=== PATIENT | female | born 1960 | race Caucasian/White ===

== ENCOUNTER 2016-06-30 13:51 | Inpatient (IN) | payer BC ==
--- NOTE | ~2016-06-30 | HP ---
History And Physical [place] [id number] [facility] [place]. [address] NAME: ADIA AUGUSTIN : 64 STATUS : ADM IN [facility]#: [id number] AGE: 55 ADM/REG DATE : 06/30/16 MR#: [id number] REPORT SERV DATE: 06/30/16 DICTATED BY: JESSICA MCKINLEY DATE: 06/30/16 REPORT STATUS : Draft TRANSCRIBED BY: MODL DATE: 06/30/16 DATE OF ADMISSION: 06/30/2016 HISTORY OF PRESENT ILLNESS: This is one of multiple ER visits and hospitalizations for Ms. Augustin. She is a 55-year-old woman who unfortunately continues to smoke despite her severe COPD, pulmonary hypertension, and chronic hypercapnic hypoxemic respiratory failure. She was brought in by EMS because of worsening dyspnea, decreased alertness, and was found to be poorly responsive on the field. She was intubated en route and stabilized in the emergency department. She had still a high carbon dioxide level after intubation with normal pH, and when we saw her, she was already intubated, sedated on mechanical ventilation, and there was no family at the bedside. PAST MEDICAL HISTORY: Significant for COPD, hypertension, chronic hypercapnic respiratory failure, and pulmonary hypertension. Unfortunately, she continues to smoke. SOCIAL HISTORY: Significant for smoking two packs a day for 35 years. She is on chronic oral therapy for pulmonary hypertension. REVIEW OF SYSTEMS: We could not obtain a review of 10 systems since she is sedated and intubated on mechanical ventilation. FAMILY HISTORY: Significant for COPD and smoking-related lung disease. PHYSICAL EXAMINATION: GENERAL: On exam, she appears chronically ill. HEENT: Normocephalic and atraumatic. NECK: Supple. No lymphadenopathy. No JVD. CHEST: Symmetric with good expansion bilaterally. Her lungs have very prolonged expiratory phase or hyperresonant to percussion even with a high expiratory time on the ventilator. CARDIOVASCULAR: Shows S1 and S2, which are regular rate and rhythm. ABDOMEN: Benign. EXTREMITIES: She has no edema, no clubbing, no cyanosis. ASSESSMENT AND PLAN: 1. Respiratory failure. She has acute on chronic hypercapnic respiratory failure. Despite a pCO2 over 70, she had a normal pH. We have started her on aggressive bronchodilator therapy, systemic steroids, and systemic antibiotics. Chest radiograph showed chronic changes of multiple calcified granulomatous nodules that were previously noted, but no new pulmonary infiltrates. She has been started on deep venous thrombosis and gastrointestinal prophylaxis and sedation while on the ventilator. 2. Tobacco abuse. The patient has a history of tobacco abuse and will be sedated. We will consider adding nicotine replacement once she is more alert. 3. Pulmonary hypertension. She has what appears to be significant cor pulmonale. She has been scheduled to be seen in our office, but has never followed up with our partners that had setup the appointment. The patient will be admitted to the intensive care History And Physical [address] [address] NAME: ADIA AUGUSTIN : 64 STATUS : ADM IN [facility]#: [id number] AGE: 55 ADM/REG DATE : 06/30/16 MR#: [id number] REPORT SERV DATE: 06/30/16 DICTATED BY: JESSICA MCKINLEY DATE: 06/30/16 REPORT STATUS : Draft TRANSCRIBED BY: DANIELLE DATE: 06/30/16 unit and kept on the ventilator until she starts demonstrating improvement. CB/DANIELLE Jessica Mckinley M.D. / [id number] CC: Jessica Mckinley M.D.
--- NOTE | ~2016-06-30 | IDS ---
Interim Discharge Summary [facility] [address] [place]. [address] NAME: ADIA AUGUSTIN : 64 STATUS : ADM IN [facility]#: [id number] AGE: 55 ADM/REG DATE : 06/30/16 MR#: [id number] REPORT SERV DATE: 07/02/16 DICTATED BY: NICOLASA MALDONADO DATE: 07/02/16 REPORT STATUS : Draft TRANSCRIBED BY: MODL DATE: 07/02/16 ADMISSION DATE: 06/30/2016 DISCHARGE DATE: 07/02/2016 DATE OF TRANSFER TO THE FLOOR: 07/02/2016. BRIEF HISTORY OF PRESENT ILLNESS: Ms. Augustin is a lady who is familiar to the pulmonary and critical care service from previous hospitalizations. She is a 55-year-old woman who has severe COPD and pulmonary hypertension with chronic hypercapnic and hypoxemic respiratory failure, who unfortunately continues to smoke. She says there were previous hospitalizations for respiratory failure. She was brought in by EMS on the evening of 06/30/2016 due to worsening dyspnea with encephalopathy. She was intubated by paramedics in the field due to obtundation and was found to have hypercapnia following an intubation with a normal PH. she was seen in the emergency department and ultimately admitted to the Coronary Care Unit for I first met her, and she was actually fairly alert on the ventilator. She did not have a significant evidence for bronchospasm on physical exam, but did have bibasilar crackles and was fairly hypoxemic on the ventilator. In light of her severe pulmonary hypertension, decision was made to proceed with aggressive diuresis, and her maintenance fluids were discontinued, and she received a scheduled Lasix which resulted in nearly 6 L urine output over the last night. She was successfully extubated to BiPAP on morning of 07/02/2016 and has actually now been weaned off the BiPAP and is tolerating a couple of liters of nasal cannula and feels significantly improved. She is now moving out to the telemetry floor for ongoing titration of supplemental oxygen, ongoing diuretic diuresis, and continued treatment of potential for exacerbation of COPD. She is awake, alert, oriented, and conversive active. PROBLEM LIST: Includes: 1. Acute on chronic hypercapnic and hypoxemic respiratory failure, status post two days of mechanical ventilation, now extubated to BiPAP, which we will continue in the evenings while she is asleep and alternate with nasal cannula as tolerated throughout the day. We have already notified Dr. Spann of her transfer to the floor, and he will continue following her along from a pulmonary standpoint. 2. Severe pulmonary hypertension, status post approximately 6 L of Lasix diuresis, which has markedly improved her hypoxemia. She is on Adcirca and which we will continue on that, she is tolerating p.o. 3. Acute exacerbation of severe COPD. Unfortunately, she continues to smoke. We have continued her on Dulera, her Spiriva, and short-acting bronchodilator nebs, and is on a prednisone after having received a couple days of Solu-Medrol while in the intensive care unit. She is being covered with Levaquin for potential community-acquired pneumonia, which would advise to discontinue pending receipt of normal cultures. 4. Longstanding tobacco abuse. She certainly needs ongoing counseling with regard to tobacco cessation and she is currently being treated with a nicotine replacement patch. Morning labs have been ordered for tomorrow. Physical Therapy has been consulted to assist with early immobilization following her extubation, and we will continue to wean down supplemental oxygen to a goal oximetry sat of 88% to 94% as tolerated. She will move out to Interim Discharge Summary [address] [address] NAME: ADIA AUGUSTIN : 64 STATUS : ADM IN [facility]#: [id number] AGE: 55 ADM/REG DATE : 06/30/16 MR#: [id number] REPORT SERV DATE: 07/02/16 DICTATED BY: NICOLASA MALDONADO DATE: 07/02/16 REPORT STATUS : Draft TRANSCRIBED BY: MODL DATE: 07/02/16 the telemetry floor to be followed by the Hospital Medicine Service ( navigator has already been notified), and Dr. Spann will follow along from a pulmonary standpoint. She is full code. Please feel to call with any questions. JJ/DANIELLE Nicolasa Maldonado MD / [id number] CC: Earl Gutierrez M.D. UNKNOWN
--- NOTE | ~2016-06-30 | CN ---
Consultation Report [facility] [address] [place]. [address] NAME: ADIA AUGUSTIN : 64 STATUS : ADM IN [facility]#: [id number] AGE: 55 ADM/REG DATE : 06/30/16 MR#: [id number] REPORT SERV DATE: 06/30/16 DICTATED BY: MESFIN LORD DATE: 06/30/16 REPORT STATUS : Draft TRANSCRIBED BY: MODL DATE: 06/30/16 CARDIOLOGY CONSULTATION DATE OF CONSULTATION: 06/30/2016 REASON FOR CONSULTATION: Concern regarding acute ST-segment elevation myocardial infarction in a 55-year-old woman presenting with [id number] cardiopulmonary arrest. HISTORY OF PRESENT ILLNESS: Ms. Augustin is a 55-year-old woman with known advanced chronic obstructive pulmonary disease which is oxygen dependent. The patient also has advanced granulomatous lung disease and severe group 3 pulmonary hypertension. The patient is presently intubated and sedated. The history is obtained from the medical chart as well as the patient's other treating physicians. The patient apparently was in her usual state of health when she went to sleep last night. The patient's called the Emergency Medical Services when the patient was unarousable this morning. The patient required rapid sequence intubation in the field. She apparently did not have overt cardiac arrest, but was hypertensive when she was brought to the emergency room. A 12-lead EKG showed diffuse J-point elevation, with possible reciprocal ST depression in lead aVL. The changes were felt to be new since a previous EKG, which was obtained by the emergency physicians. The patient apparently continues to smoke cigarettes at home. She has undergone cardiac catheterization in the past. This was a left and right heart catheterization showing severe pulmonary hypertension with a mean pulmonary artery systolic pressure of 44 mmHg. The catheterization was performed in 05/2015 and showed no significant coronary heart disease. PAST MEDICAL HISTORY: 1. Severe oxygen-dependent chronic obstructive pulmonary disease. 2. Granulomatous lung disease. 3. Group 3 pulmonary hypertension. PAST SURGICAL HISTORY: Significant for two previous C-sections. FAMILY HISTORY: Significant for COPD and diabetes. The patient has no known history of early coronary heart disease or sudden cardiac . SOCIAL HISTORY: The patient apparently still smokes cigarettes. She has no known history of alcohol abuse. She lives at home with her . ALLERGIES: THE PATIENT HAS A PREVIOUS DOCUMENTED ALLERGY TO PENICILLIN. HOME MEDICATIONS: The patient's current home medication list is unknown. Consultation Report [place] [id number] [place]. [address] NAME: ADIA AUGUSTIN : 64 STATUS : ADM IN PAT#: [id number] AGE: 55 ADM/REG DATE : 06/30/16 MR#: [id number] REPORT SERV DATE: 06/30/16 DICTATED BY: MESFIN LORD DATE: 06/30/16 REPORT STATUS : Draft TRANSCRIBED BY: MODL DATE: 06/30/16 REVIEW OF SYSTEMS: A review of systems could not be performed, as the patient is currently intubated and sedated. PHYSICAL EXAMINATION: VITAL SIGNS: Temperature is 98.0 degrees Fahrenheit, blood pressure is 129/62 mmHg, heart rate is 75 beats per minute and regular, respirations 15, and oxygen saturation is 96% on 100% FiO2 mechanical ventilation. CONSTITUTIONAL: The patient is a well-nourished white woman who is currently intubated and sedated, but does wake up with noxious stimuli, and appears to localize. EYES: PERRL, EOMI, clear conjunctiva. HEAD/MNT: NCAT with moist mucous membranes and grossly normal hard and soft palate. NECK: Supple with no obvious thyromegaly or lymphadenopathy CARDIOVASCULAR: Heart sounds are distant. There is a regular rhythm with a normal S1 and a slightly pronounced P2 component of the second heart sound. The jugular venous pressure appears grossly normal. No significant murmurs are noted. PULMONARY: There is globally diminished air movement with a diffuse expiratory wheeze noted. No rales are appreciated. ABDOMINAL: Soft, non-tender, non-distended with no hepatosplenomegaly noted. EXTREMITIES: No clubbing, cyanosis or edema. MUSCULOSKELETAL: Grossly normal strength and range of motion in all extremities INTEGUMENTARY: Skin appears intact with no bruises, wounds or active lesions noted NEUROLOGIC: Neuro exam could not be performed due to sedation. IMAGIN-LEAD EKG: The 12-lead EKG performed on 06/30/2016 at 1325 hours shows sinus rhythm with a heart rate of 60 beats per minute. There is 1 mm of J-point elevation in leads II, III, and aVF as well as leads V3 through V6. There is peaking of the T-waves. There is a short p.r.n. interval noted, with an unusual P-wave axis. CHEST X-RAY: The chest x-ray shows hyperinflation of the lungs with diffuse granulomatous disease, which apparently is chronic. LABORATORY DATA: ABG shows a pH of 7.40, pCO2 of 72, PaO2 of 592 on 100% FiO2. Cell count shows a white blood cell count of 10.6, hemoglobin 13, hematocrit 44, platelets 200. INR is normal at 0.9. Serum lactate is 2.4. B-type natriuretic peptide is normal at 41. Hepatic profile shows a procalcitonin of less than 0.05. Sodium is 139, potassium 3.8, chloride is 89, CO2 of 44, BUN 11, creatinine is 0.57, glucose is 155. Magnesium 1.8. Troponin I is normal at 0.03. Liver function studies are otherwise unremarkable. Bedside echocardiogram: A bedside echocardiogram was performed in the emergency room. The patient's only usable windows were the subcostal windows. However, limited imaging of the left ventricle and right ventricle shows grossly normal left ventricular systolic function Consultation Report [place] [id number] [facility] [place]. [address] NAME: ADIA AUGUSTIN : 64 STATUS : ADM IN [facility]#: [id number] AGE: 55 ADM/REG DATE : 06/30/16 MR#: [id number] REPORT SERV DATE: 06/30/16 DICTATED BY: MESFIN LORD DATE: 06/30/16 REPORT STATUS : Draft TRANSCRIBED BY: MODCarroll DATE: 06/30/16 with an ejection fraction felt to be in the range of 55% to 60%. No segmental wall motion abnormalities were noted. Additionally, RV systolic function appeared normal. There did appear to be at least some degree of right ventricular hypertrophy. ASSESSMENT AND PLAN: 1. Hypercarbic respiratory failure: The patient is being treated for a chronic obstructive pulmonary disease exacerbation by the Pulmonary Critical Care Service. 2. Abnormal EKG: There is no evidence of acute myocardial infarction at this time. Acute pericarditis cannot be excluded. However, this would be unlikely to explain the patient's decompensation. For now, I would recommend no specific medical therapy. If the patient does have chest pain suggesting pericarditis following extubation, consider NSAID therapy. Again, the patient has no known coronary heart disease, and therefore, should not require any specific cardiovascular treatment. 3. Severe group 3 pulmonary hypertension: Treat underlying chronic obstructive pulmonary disease. The patient should be strongly encouraged to stop smoking. Thank you for allowing me to participate in the care of Ms. Augustin. If the patient appears to have no active cardiac issues, the Cardiology Service will sign off. Please re-consult Cardiology should active cardiac issues develop. DESEAN/DANIELLE Mesfin Lord MD / [id number] CC: Earl Gutierrez M.D. UNKNOWN
--- NOTE | ~2016-06-30 | DS ---
Discharge Summary [facility] [address] [place]. [address] NAME: ADIA WADSWORTH : 64 STATUS : DIS IN PAT#: [id number] AGE: 55 ADM/REG DATE : 06/30/16 MR#: [id number] REPORT SERV DATE: 07/06/16 DICTATED BY: MARTINA BRAN DATE: 07/05/16 REPORT STATUS : Draft TRANSCRIBED BY: MODL DATE: 07/05/16 ADMISSION DATE: 06/30/2016 DISCHARGE DATE: 07/05/2016 PRINCIPAL DIAGNOSIS: Acute on chronic exacerbation of chronic obstructive pulmonary disease, severe pulmonary hypertension. SECONDARY DIAGNOSIS: Acute on chronic hypercapnic respiratory failure with metabolic encephalopathy due to elevated CO2, and anxiety disorder with depression. HISTORY OF PRESENT ILLNESS: Please see dictation by the Critical Care Team on 06/30/2016 and subsequent interim summary on 07/02/2016. HOSPITAL COURSE: The patient was transferred to the floor. Satisfactory wean down off oxygen, actually below her basal dose, as she actually was felt to have had oxygen toxicity when she became disoriented and her turned up the O2. She had issues with sleeping with depression. She was initiated on Paxil and trazodone at bedtime p.r.n. with referral to a psychologist of choice, but she was ambulating well, eating well, and there was no further wheezing. She will be released in a satisfactory condition on 07/05/2016. Diet as tolerated. Activity as tolerated. Following up with Dr. Tyron Spann in one to two weeks, with Paxil 10 mg, trazodone as mentioned, Florastor on antibiotics. She was actually going to finish Levaquin while she was here. Prednisone 20 per day for three days. MiraLAX daily. She will continue her Opsumit and Revatio. Proventil patch with instructions not to smoke. GILLM/DANIELLE Martina Bran M.D. / [id number] CC: Cassie Blanca,
[~2016-06-30 13:51] MED LIST: ADCIRCA20 MG PO; ASAB PO; ATEN25 PO; HABIT21 TOP; KDUR10 PO; KLOR-CON20 MEQ PO; L20 PO; L40 PO; NICODERM C21 MG/241 TOP; OPSUMIT10 PO; POTASSIUM RX PO; PRILO PO; PRIN2.5 PO; PROAIR HFA INH; PROVENTSOL INH; SPIRIVA RESPIMAT INH; TUMSROLL PO; VENTOLIN HFA INH; VITAMIN D2000 UNIT PO
[2016-06-30 13:56] LABS: BASOPHILS 0.1 %; BASOPHILS ABSOLUTE 0.01 10/3/uL (0.0-0.16); EOSINOPHILS 0.2 %; EOSINOPHILS ABSOLUTE 0.02 10/3/uL (0.0-0.53); HEMOGLOBIN 12.9 g/dL (12.0-16.0); IMMATURE GRANULOCYTES 0.8 %; IMMATURE GRANULOCYTES ABSOLUTE 0.09 10/3/uL (0.0-0.11); LYMPHOCYTES 5.7 %; LYMPHOCYTES ABSOLUTE 0.61 10/3/uL (0.67-4.30); MEAN CORPUS HGB CONC 29.7 g/dL (32.0-36.0); MEAN CORPUSCULAR HEMOGLOB 28.6 pg (26.0-34.0); MEAN PLATELET VOLUME 11.9 fL (9.2-13.0); MONOCYTES 5.3 %; MONOCYTES ABSOLUTE 0.56 10/3/uL (0.21-1.20); NEUTROPHILS 87.9 %; NEUTROPHILS ABSOLUTE 9.35 10/3/uL (2.02-8.40); NUCLEATED RED BLOOD CELLS 0.2 /100WBC (0-0); RBC DISTRIBUTION WIDTH 14.4 % (12.0-16.0); RED CELL COUNT 4.51 10/6/uL (4.0-5.6)
[2016-06-30 13:58] LABS: ER CBC TAT 0 Hrs 00 Mins; HEMATOCRIT 43.5 % (36.0-48.0); MEAN CORPUSCULAR VOLUME 96.5 fL (80-100); PLATELET COUNT 200 10/3/uL (150-400); WHITE BLOOD CELLS 10.6 10/3/uL (4.5-10.5)
[2016-06-30 13:58] LABS: BE (BASE EXCESS) 15.6 MEQ/L (0 +/- 2.5); HCO3 (ACTUAL BICARBONATE) 43.5 MEQ/L (23-27); HEMOBLOGIN CONTENT 11.8 G/DL (12-16); INSTRUMENT SERIAL # 8087; METHEMOGLOBIN 0.2 % (0-3); MODE CMV; O2 CONTENT 17.6 VOL% (18-24); OPERATOR ID 32214; PCO2 (CO2 TENSION) 72 MMHG (35-45); PO2 (O2 TENSION) 592 MMHG (79-93); SAMPLE Arterial
[2016-06-30 13:59] LABS: MANUAL DIFF NO %
[2016-06-30 13:59] LABS: ALLENS TEST Pos; TIDAL VOLUME 500 ML
[2016-06-30 14:03] LABS: INTERNATIONAL NORMAL RATI 0.9 UNITS (-); PARTIAL THROMBO TIME 26.4 SEC (22.5-37.2); PROTIME (NOT ORD) 12.4 SEC (12.0-14.5)
[2016-06-30 14:54] LABS: ALBUMIN 3.5 G/DL (3.5-5.0); BUN (BLOOD UREA NITROGEN) 11 MG/DL (6-23); CALCIUM, SERUM 8.6 MG/DL (8.5-10.4); CHEST PAIN PROFILE TAT 0 Hrs 25 Mins; CHLORIDE, SERUM 89 MMOL/L (96-112); CREATININE 0.57 MG/DL (0.55-1.02); DIRECT BILIRUBIN 0.1 MG/DL (0.0-0.4); GFR AFRICAN AMERICAN 123 ML/MIN (>=60); GFR NON AFRICAN AMERICAN 106 ML/MIN (>=60); INDIRECT BILIRUBIN(NOT ORDER) 0.6 MG/DL (0.1-0.9); POTASSIUM, SERUM 3.8 MMOL/L (3.5-5.3); SGOT(AST) 14 U/L (5-40); SGPT(ALT) 16 U/L (5-65); SODIUM, SERUM 139 MMOL/L (135-148); TOTAL BILIRUBIN 0.7 MG/DL (0-1.2); TROPONIN I 0.03 NG/ML (<0.05)
[2016-06-30 14:55] LABS: ALKALINE PHOSPHATASE 133 U/L (45-117); GLUCOSE, SERUM 155 MG/DL (60-99)
[2016-06-30] MEDS ORDERED: *UNABLE3 (14:55)
[2016-06-30 15:14] LABS: CO2 (CARBON DIOXIDE) 44 MMOL/L (24-34)
[2016-06-30 16:13] LABS: PROCALCITONIN <0.05 ng/mL (<0.5)
[2016-07-01 04:41] LABS: BASOPHILS 0 %; EOSINOPHILS 0 %; HEMOGLOBIN 11.1 g/dL (12.0-16.0); IMMATURE GRANULOCYTES 0.3 %; IMMATURE GRANULOCYTES ABSOLUTE 0.03 10/3/uL (0.0-0.11); LYMPHOCYTES 10.4 %; LYMPHOCYTES ABSOLUTE 1.12 10/3/uL (0.67-4.30); MEAN CORPUS HGB CONC 29.7 g/dL (32.0-36.0); MEAN CORPUSCULAR HEMOGLOB 28.2 pg (26.0-34.0); MEAN CORPUSCULAR VOLUME 95.2 fL (80-100); MEAN PLATELET VOLUME 12.1 fL (9.2-13.0); MONOCYTES 7.9 %; MONOCYTES ABSOLUTE 0.85 10/3/uL (0.21-1.20); NEUTROPHILS 81.4 %; NEUTROPHILS ABSOLUTE 8.73 10/3/uL (2.02-8.40); PLATELET COUNT 151 10/3/uL (150-400); RBC DISTRIBUTION WIDTH 14.1 % (12.0-16.0); RED CELL COUNT 3.93 10/6/uL (4.0-5.6); WHITE BLOOD CELLS 10.7 10/3/uL (4.5-10.5)
[2016-07-01 04:43] LABS: HEMATOCRIT 37.4 % (36.0-48.0); MANUAL DIFF NO %
[2016-07-01 05:26] LABS: BUN (BLOOD UREA NITROGEN) 14 MG/DL (6-23); CALCIUM, SERUM 9.3 MG/DL (8.5-10.4); CHLORIDE, SERUM 90 MMOL/L (96-112); CO2 (CARBON DIOXIDE) 40 MMOL/L (24-34); CREATININE 0.73 MG/DL (0.55-1.02); GFR AFRICAN AMERICAN 109 ML/MIN (>=60); GFR NON AFRICAN AMERICAN 94 ML/MIN (>=60); POTASSIUM, SERUM 3.8 MMOL/L (3.5-5.3); SODIUM, SERUM 137 MMOL/L (135-148)
[2016-07-01 05:34] LABS: GLUCOSE, SERUM 102 MG/DL (60-99); ULTRASENSITIVE TSH 0.401 MCIU/ML (0.358-3.740)
[2016-07-01] MEDS ORDERED: ADCIRCA20 MG PO (09:25)
[2016-07-01] MEDS ORDERED: OPSUMIT10 PO (09:25)
[2016-07-01 12:21] LABS: A/G RATIO 0.9 (0.7-1.9); GLOBULIN 3.3 G/DL (2.5-4.1); PREALBUMIN 9.7 MG/DL (17.0-43.0); SGOT(AST) 17 U/L (5-40); SGPT(ALT) 15 U/L (5-65); TOTAL BILIRUBIN 0.3 MG/DL (0-1.2); TOTAL PROTEIN 6.3 G/DL (6.0-8.5)
[2016-07-01 12:22] LABS: ALKALINE PHOSPHATASE 94 U/L (45-117); PHOSPHORUS, SERUM 0.6 MG/DL (2.5-4.5)
[2016-07-01 16:19] LABS: ALBUMIN 2.8 G/DL (3.5-5.0); BUN (BLOOD UREA NITROGEN) 13 MG/DL (6-23); CALCIUM, SERUM 9.4 MG/DL (8.5-10.4); CHLORIDE, SERUM 88 MMOL/L (96-112); CO2 (CARBON DIOXIDE) 42 MMOL/L (24-34); CREATININE 0.72 MG/DL (0.55-1.02); GFR AFRICAN AMERICAN 111 ML/MIN (>=60); GFR NON AFRICAN AMERICAN 96 ML/MIN (>=60); GLUCOSE, SERUM 124 MG/DL (60-99); PHOSPHORUS, SERUM 1.5 MG/DL (2.5-4.5); POTASSIUM, SERUM 3.1 MMOL/L (3.5-5.3); SODIUM, SERUM 135 MMOL/L (135-148)
[2016-07-02 03:54] LABS: BASOPHILS 0 %; EOSINOPHILS 0 %; HEMATOCRIT 35.8 % (36.0-48.0); HEMOGLOBIN 11.3 g/dL (12.0-16.0); IMMATURE GRANULOCYTES 0.3 %; IMMATURE GRANULOCYTES ABSOLUTE 0.03 10/3/uL (0.0-0.11); LYMPHOCYTES ABSOLUTE 0.62 10/3/uL (0.67-4.30); MANUAL DIFF NO %; MEAN CORPUS HGB CONC 31.6 g/dL (32.0-36.0); MEAN CORPUSCULAR HEMOGLOB 28.6 pg (26.0-34.0); MEAN CORPUSCULAR VOLUME 90.6 fL (80-100); MEAN PLATELET VOLUME 11.6 fL (9.2-13.0); MONOCYTES 5.8 %; MONOCYTES ABSOLUTE 0.51 10/3/uL (0.21-1.20); NEUTROPHILS 86.9 %; NEUTROPHILS ABSOLUTE 7.69 10/3/uL (2.02-8.40); PLATELET COUNT 130 10/3/uL (150-400); RBC DISTRIBUTION WIDTH 14.3 % (12.0-16.0); RED CELL COUNT 3.95 10/6/uL (4.0-5.6); WHITE BLOOD CELLS 8.9 10/3/uL (4.5-10.5)
[2016-07-02 04:09] LABS: ALBUMIN 2.8 G/DL (3.5-5.0); BUN (BLOOD UREA NITROGEN) 16 MG/DL (6-23); CALCIUM, SERUM 8.7 MG/DL (8.5-10.4); CHLORIDE, SERUM 86 MMOL/L (96-112); CREATININE 0.57 MG/DL (0.55-1.02); GFR AFRICAN AMERICAN 123 ML/MIN (>=60); GFR NON AFRICAN AMERICAN 106 ML/MIN (>=60); GLUCOSE, SERUM 127 MG/DL (60-99); POTASSIUM, SERUM 3.1 MMOL/L (3.5-5.3); SODIUM, SERUM 138 MMOL/L (135-148)
[2016-07-02 04:11] LABS: CO2 (CARBON DIOXIDE) 41 MMOL/L (24-34); PHOSPHORUS, SERUM 5.2 MG/DL (2.5-4.5)
[2016-07-02 05:51] LABS: PROCALCITONIN <0.05 ng/mL (<0.5)
[2016-07-02] MEDS ORDERED: L40 PO (10:21)
[2016-07-02] MEDS ORDERED: ASAB PO (10:21)
[2016-07-02] MEDS ORDERED: L20 PO (10:21)
[2016-07-02] MEDS ORDERED: PROAIR HFA INH (10:22)
[2016-07-02] MEDS ORDERED: SPIRIVA RESPIMAT INH (10:22)
[2016-07-03 06:55] LABS: BASOPHILS 0 %; EOSINOPHILS 0.1 %; EOSINOPHILS ABSOLUTE 0.01 10/3/uL (0.0-0.53); HEMOGLOBIN 12.9 g/dL (12.0-16.0); IMMATURE GRANULOCYTES 0.1 %; IMMATURE GRANULOCYTES ABSOLUTE 0.01 10/3/uL (0.0-0.11); LYMPHOCYTES 17.4 %; MEAN CORPUS HGB CONC 31.5 g/dL (32.0-36.0); MEAN CORPUSCULAR HEMOGLOB 28.7 pg (26.0-34.0); MEAN CORPUSCULAR VOLUME 90.9 fL (80-100); MEAN PLATELET VOLUME 11.9 fL (9.2-13.0); MONOCYTES 9.1 %; MONOCYTES ABSOLUTE 0.89 10/3/uL (0.21-1.20); NEUTROPHILS 73.3 %; NEUTROPHILS ABSOLUTE 7.15 10/3/uL (2.02-8.40); RBC DISTRIBUTION WIDTH 14.2 % (12.0-16.0); WHITE BLOOD CELLS 9.8 10/3/uL (4.5-10.5)
[2016-07-03 06:56] LABS: HEMATOCRIT 40.9 % (36.0-48.0); MANUAL DIFF NO %; PLATELET COUNT 183 10/3/uL (150-400)
[2016-07-03 07:13] LABS: ALBUMIN 3.3 G/DL (3.5-5.0); CHLORIDE, SERUM 87 MMOL/L (96-112); CO2 (CARBON DIOXIDE) 40 MMOL/L (24-34); GFR AFRICAN AMERICAN 115 ML/MIN (>=60); GFR NON AFRICAN AMERICAN 99 ML/MIN (>=60); POTASSIUM, SERUM 3.5 MMOL/L (3.5-5.3); SODIUM, SERUM 137 MMOL/L (135-148)
[2016-07-03 07:15] LABS: BUN (BLOOD UREA NITROGEN) 20 MG/DL (6-23); CALCIUM, SERUM 9.7 MG/DL (8.5-10.4); GLUCOSE, SERUM 90 MG/DL (60-99); PHOSPHORUS, SERUM 3.8 MG/DL (2.5-4.5)
[2016-07-04 04:45] LABS: ALLENS TEST Pos; BE (BASE EXCESS) 13.5 MEQ/L (0 +/- 2.5); CARBOXYHEMOGLOBIN 1.3 % (0-3); HCO3 (ACTUAL BICARBONATE) 40.2 MEQ/L (23-27); HEMOBLOGIN CONTENT 12.8 G/DL (12-16); INSTRUMENT SERIAL # 8087; METHEMOGLOBIN 0.2 % (0-3); O2 CONTENT 17.5 VOL% (18-24); OPERATOR ID 17537; PCO2 (CO2 TENSION) 60 MMHG (35-45); PO2 (O2 TENSION) 105 MMHG (79-93); SAMPLE Arterial; pH 7.44 (7.37-7.43)
[2016-07-05] MEDS ORDERED: HABIT21 (10:57)
[2016-07-05] MEDS ORDERED: PAX10 PO (10:59)
[2016-07-05] MEDS ORDERED: MIRALAX POWDER1 PKT PO (11:00)
[2016-07-05] MEDS ORDERED: TRAZ100 (11:02)
[2016-07-05] MEDS ORDERED: P20 PO (11:03)
[2016-07-05] MEDS ORDERED: SYMBICORT 160/41 INH INH (11:09)
[2016-11-13] MEDS ORDERED: SYMBICORT 160/41 INH INH (15:40)
[2016-11-13] MEDS ORDERED: ALBUTEROL0.083 % INH (15:40)
[2016-11-13] MEDS ORDERED: OPSUMIT10 PO (15:40)
[2016-11-13] MEDS ORDERED: PROAIR HFA INH (15:40)
[2016-11-13] MEDS ORDERED: ADCIRCA20 MG PO (15:41)
[2016-11-13] MEDS ORDERED: KLOR-CON M2020 MEQ PO (15:41)
[2016-11-13] MEDS ORDERED: KLOR-CON M1010 MEQ PO (15:41)
[2016-11-13] MEDS ORDERED: L40 PO (15:42)
[2016-11-13] MEDS ORDERED: SPIRIVA RESPIMAT INH (15:42)
[2016-11-13] MEDS ORDERED: TRAZ100 PO (15:42)
[2016-11-13] MEDS ORDERED: L20 PO (15:43)
[2016-11-17] MEDS ORDERED: P20 PO (14:43)
[2016-11-17] MEDS ORDERED: BUSPIRONE7.5 MG PO (14:44)
[2016-11-17] MEDS ORDERED: X5 PO (14:45)
== END 2016-07-05 11:59 | disposition home or self-care (01) | DRG 208 ==
LOC: ER 13:51 → CCU 14:35 → 7NO 07-02 19:49
PROVIDERS: Emergency Medicine; Internal Medicine; Internal Medicine Critical Care Medicine; Internal Medicine Pulmonary Disease
PROC: 5A1945Z Respiratory Ventilation, 24-96 Consecutive Hours (ICD-10-PCS; principal; 2016-06-30)
DX: J96.22 Acute and chronic respiratory failure with hypercapnia (principal); G93.40 Encephalopathy, unspecified; J44.1 Chronic obstructive pulmonary disease with (acute) exacerbation; I27.2 Other secondary pulmonary hypertension; Z99.81 Dependence on supplemental oxygen; F17.210 Nicotine dependence, cigarettes, uncomplicated; R94.31 Abnormal electrocardiogram [ECG] [EKG]; L92.8 Other granulomatous disorders of the skin and subcutaneous tissue; Z82.5 Family history of asthma and other chronic lower respiratory diseases; Z98.890 Other specified postprocedural states; Z83.3 Family history of diabetes mellitus; Z88.0 Allergy status to penicillin; G47.33 Obstructive sleep apnea (adult) (pediatric)
CPT/HCPCS: 31720; 36600; 71010; 74000; 80048; 80053; 80069; 80076; 82330; 82803; 82805; 82947; 82962; 83605; 83735; 83880; 84100; 84132; 84134; 84145; 84295; 84443; 84484; 84703; 85014; 85025; 85610; 85730; 87040; 87150; 87641; 93005; 94002; 94003; 94640; 94660; 94770; 96374; 99291; A9270-GY; C9113; J1956; J2920; J2930; J3010